=== PATIENT | male | born 1980 | race Caucasian/White ===

== ENCOUNTER → 2025-08-04 | Emergency (ER) | payer OTHER ==
[~2025-08-04] VITALS: Ht 175.3 cm; Wt 79.4 kg
[2025-08-04 10:46] VITALS: BP 134/79; TEMP 97.9; O2SAT 99
== END | disposition home or self-care (01) ==
LOC: ER 11:48
DX: E11.9 Type 2 diabetes mellitus without complications (principal); H53.9 Unspecified visual disturbance
CPT/HCPCS: 82962-TC